=== PATIENT | female | born 1965 | race African-American/Black ===

== ENCOUNTER 2017-01-22 16:07 | Emergency (ER) | payer MEDICAID ==
[~2017-01-22] VITALS: Ht 167.6 cm; Wt 73.0 kg
[2017-01-23] MEDS ORDERED: KETOROLAC 30MG/ML VIAL IV STA (02:09)
[2017-01-23] MEDS ORDERED: SODIUM CHLORIDE 0.9% 1,000 ML IV ONE (02:09)
[2017-01-23 02:25] LABS: HEMATOCRIT. 37.4 % (36.0-48.0); HEMOGLOBIN. 12.1 g/dL (12.0-16.0); MEAN CORPUSCULAR HEMOGLOBIN 23.8 pg (28.0-32.0); MEAN CORPUSCULAR VOLUME 73.5 fL (81.0-99.0); MEAN PLATELET VOLUME 8.8 fl (7.4-10.4); PLATELET 178 x1000/uL (130-400); RED BLOOD CELL COUNT 5.09 mill/uL (4.2-5.4); RED CELL DISTRIBUTION WIDTH 15.6 % (11.6-14.6)
[2017-01-23 02:32] LABS: INR 1.1; PROTHROMBIN TIME 11.9 sec (9.4-11.6)
[2017-01-23 02:40] LABS: CARBON DIOXIDE 25 mEq/L (21-32); CHLORIDE 102 mEq/L (98-107)
[2017-01-23 02:43] LABS: CLARITY URINE CLOUDY (CLEAR); COLOR URINE DARK YELLOW (YELLOW); KETONES URINE NEGATIVE (NEGATIVE); LEUKOCYTE ESTERASE URINE NEGATIVE (NEGATIVE); NITRITE URINE NEGATIVE (NEGATIVE); OCCULT BLOOD URINE NEGATIVE (NEGATIVE); PROTEIN URINE NEGATIVE (NEGATIVE); SPECIFIC GRAVITY URINE 1.031 (1.005-1.030)
[2017-01-23 02:52] LABS: *AMPHETAMINES SCREEN URINE NEGATIVE (NEGATIVE); *BARBITURATES SCREEN URINE NEGATIVE (NEGATIVE); *BENZODIAZEPINES SCREEN URINE NEGATIVE (NEGATIVE); *COCAINE SCREEN URINE NEGATIVE (NEGATIVE); CANNABINOID URINE SCREEN NEGATIVE (NEGATIVE); METHADONE URINE SCREEN NEGATIVE (NEGATIVE); OPIATES URINE SCREEN NEGATIVE (NEGATIVE); PHENCYCLIDINE URINE SCREEN NEGATIVE (NEGATIVE)
[2017-01-23 02:52] LABS: HCG SCREEN NEGATIVE
[2017-01-23 05:06] LABS: PLATELET ESTIMATE NORMAL
[2017-01-23 05:14] VITALS: BP 132/70
== END 2017-01-23 05:17 | disposition home or self-care (01) ==
LOC: ER 16:07
DX: J98.8 Other specified respiratory disorders (principal); B34.9 Viral infection, unspecified; R79.1 Abnormal coagulation profile
CPT/HCPCS: 36415; 71010; 80053; 80305; 81001; 83690; 84703; 85025; 85610; 96361; 96374; 99285; J1885; J7030; Z7610

== ENCOUNTER 2020-12-24 19:25 | Emergency (ER) | payer MEDICAID, OTHER ==
[~2020-12-24] VITALS: Ht 165.1 cm; Wt 98.1 kg
[2020-12-24 19:50] VITALS: BP 150/89
[2020-12-24] MEDS ORDERED: CEPH500C2 MT (22:51)
[2020-12-24] MEDS ORDERED: DIPHENHYDRAMINE 25MG CAPSULE PO ONE (23:15)
== END 2020-12-24 23:17 | disposition home or self-care (01) ==
LOC: ER 20:18
DX: S70.361A Insect bite (nonvenomous), right thigh, initial encounter (principal); W57.XXXA Bitten or stung by nonvenomous insect and other nonvenomous arthropods, initial encounter; Y93.89 Activity, other specified; Y92.89 Other specified places as the place of occurrence of the external cause; Y99.8 Other external cause status
CPT/HCPCS: 99282; Q0163